=== PATIENT | female | born 1960 | race African-American/Black ===

== ENCOUNTER → 2016-09-03 | Outpatient (CLI) | payer OTHER | LOC: OD 10:45 | DX: D64.9 Anemia, unspecified (principal) | CPT/HCPCS: 36415; 82728; 83540; 83550 ==

== ENCOUNTER 2017-05-16 14:10 | Observation (INO) | payer MEDICAID, OTHER ==
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
[2017-05-16 15:08] LABS: ABSOLUTE EOSINOPHILS # (AUTO) 0.1 10^3/uL (0.0-0.6); ABSOLUTE LYMPHOCYTES (AUTO) 0.9 10^3/uL (0.5-4.7); ABSOLUTE MONOCYTES (AUTO) 0.3 10^3/uL (0.1-1.4); ABSOLUTE NEUT (AUTO) 1.6 10^3/uL (1.7-8.2); BASOPHILS % (AUTO) 0.7 % (0-2); EOSINOPHILS % (AUTO) 2.3 % (0-6); HEMOGLOBIN 12.5 g/dL (12.0-15.5); HGB HCT DIFFERENCE -0.5; LYMPHOCYTES % (AUTO) 32.7 % (13-45); MEAN CORPUSCULAR HEMOGLOBIN 28.7 pg (27.0-33.4); MEAN CORPUSCULAR HGB CONC 32.9 g/dL (32.0-36.0); MEAN CORPUSCULAR VOLUME 87 fl (80-97); MONOCYTES % (AUTO) 9.7 % (3-13); RED BLOOD COUNT 4.37 10^6/uL (3.72-5.28); SEGMENTED NEUTROPHILS % (AUTO) 54.6 % (42-78); WHITE BLOOD COUNT 2.9 10^3/uL (4.0-10.5)
[2017-05-16 15:13] LABS: PROTHROMBIN TIME 14.2 SEC (11.4-15.4)
[2017-05-16 15:14] LABS: PARTIAL THROMBOPLASTIN TIME 31.9 SEC (23.5-35.8)
[2017-05-16 15:23] LABS: ALANINE AMINOTRANSFERASE 35 U/L (9-52); ALBUMIN 4.7 g/dL (3.5-5.0); ALKALINE PHOSPHATASE 58 U/L (38-126); ANION GAP 13 (5-19); ASPARTATE AMINO TRANSFERASE 23 U/L (14-36); BILIRUBIN,DIRECT 0.3 mg/dL (0.0-0.4); BILIRUBIN,TOTAL 0.6 mg/dL (0.2-1.3); BLOOD UREA NITROGEN 16 mg/dL (7-20); CARBON DIOXIDE 27 mmol/L (22-30); CHLORIDE 104 mmol/L (98-107); CREATINE KINASE 132 U/L (30-135); CREATININE RESULT 0.71 mg/dL (0.52-1.25); GLUCOSE 93 mg/dL (75-110); POTASSIUM 4.5 mmol/L (3.6-5.0); TOTAL PROTEIN 8.4 g/dL (6.3-8.2)
--- NOTE | 2017-05-16 15:23 | RADIOLOGY REPORT (SQ) ---
EXAM DESCRIPTION: CHEST SINGLE VIEW COMPLETED DATE/TIME: 05/16/2017 3:05 pm REASON FOR STUDY: chest pain, SOB, nausea COMPARISON: 08/07/2016 EXAM PARAMETERS: NUMBER OF VIEWS: One view. TECHNIQUE: Single frontal radiographic view of the chest acquired. RADIATION DOSE: NA LIMITATIONS: None. FINDINGS: LUNGS AND PLEURA: No opacities, masses or pneumothorax. No pleural effusion. MEDIASTINUM AND HILAR STRUCTURES: No masses. Contour normal. HEART AND VASCULAR STRUCTURES: Heart normal in size. Normal vasculature. BONES: No acute findings. HARDWARE: None in the chest. OTHER: No other significant finding. IMPRESSION: NO ACUTE RADIOGRAPHIC FINDING IN THE CHEST. TECHNICAL DOCUMENTATION: JOB ID: [id number]
--- NOTE | 2017-05-16 15:23 | RADIOLOGY REPORT (SQ) ---
EXAM DESCRIPTION: CT HEAD WITHOUT COMPLETED DATE/TIME: 05/16/2017 3:10 pm REASON FOR STUDY: right sided weakness COMPARISON: 08/07/2016 TECHNIQUE: Axial images acquired through the brain without intravenous contrast. Images reviewed wi th bone, brain and subdural windows. Images stored on PACS. All CT scanners at this facility use dose modulation, iterative reconstruction, and/or weight based d osing when appropriate to reduce radiation dose to as low as reasonably achievable (ALARA). [facility]: Dose Right [facility]: CareDose [facility]: Dose Right [facility]: Teradose 4D [facility]: Smart Transpera RADIATION DOSE: Up-to-date CT equipment and radiation dose reduction techniques were employed. CTDIv ol: 64.6 mGy. DLP: 1163 mGy-cm. mGy. LIMITATIONS: None. FINDINGS: VENTRICLES: Normal size and contour. CEREBRUM: No masses. No hemorrhage. No midline shift. No evidence for acute infarction. Normal gra y/white matter differentiation. No areas of low density in the white matter. CEREBELLUM: No masses. No hemorrhage. No alteration of density. No evidence for acute infarction. EXTRAAXIAL SPACES: No fluid collections. No masses. ORBITS AND GLOBE: No intra- or extraconal masses. Normal contour of globe without masses. CALVARIUM: No fracture. PARANASAL SINUSES: Stable right maxillary sinus mucous retention cyst. SOFT TISSUES: No mass or hematoma. OTHER: No other significant finding. IMPRESSION: NO ACUTE INTRACRANIAL IMAGING FINDINGS. NO SIGNIFICANT CHANGE FROM PRIOR STUDY. EVIDENCE OF ACUTE STROKE: NO. COMMENT: Quality ID # [id number]: Final reports with documentation of one or more dose reduction techniques (e.g., Automated exposure control, adjustment of the mA and/or kV according to patient size, use of iterative reconstruction technique) TECHNICAL DOCUMENTATION: JOB ID: [id number]- All Rights Reserved
[2017-05-16 15:35] LABS: CREATINE KINASE MB 1.71 ng/mL (<4.55)
[2017-05-16 15:36] LABS: TROPONIN I < 0.012 ng/mL
[2017-05-16] MEDS ORDERED: OXYCODONE-ACETAMINOPHEN 5-325 MG TABLET PO ONE (15:50)
--- NOTE | 2017-05-16 15:54 | ER Document Report ---
ED Cardiac - General Chief Complaint: Chest Pain Stated Complaint: CHEST PAIN Time Seen by Provider: 05/16/17 14:38 Mode of Arrival: Ambulatory Information source: Patient Notes: 56 yo hypothyroid, CVA 2012, GERD, daily headache Migraine female drove herself to ER c/o constant sharp tightness in chest retrosternal and under left breast onset last night, also c/o dizziness, headache (all around head- doesn't want to discribe any further), {during hx pt keeps rolling her eyes and saying "[place]" not wanting to answer questions because "I hurt so bad", then she apologizes saying she does not fell well}, numbness in right leg and right arm also started last night. Numbness right side of face started while in ER . Pt teaful but says "I' m alright- I'm alright " Hx DDD lumbar which causes legs to go out on her blaterally, and hx of migraines which she thinks she has now. PCP: Dr. Chin Never had stress test. Hx PE on Warfarin and states she is allergic to aspirin ( hives) but has been given baby asa in ER before here. Same presentation today than when she present 08-07-16. She wants me to tell dr. chin that she now has Medicaid. TRAVEL OUTSIDE OF THE [place] IN LAST 30 DAYS: No - Related Data Allergies/Adverse Reactions: egg [Egg] Allergy (Unknown, Verified 05/16/17 14:29) hydrocodone [Hydrocodone] Allergy (Unknown, Verified 05/16/17 14:29) Influenza Virus Vaccines [Influenza Virus Vaccine] Allergy (Unknown, Verified 14:29) Iodinated Contrast- Oral and IV Dye [IV Dye, Iodine Containing] Allergy (Unknown , Verified 05/16/17 14:29) metaxalone [From Skelaxin] Allergy (Unknown, Verified 05/16/17 14:29) metoclopramide [From Reglan] Allergy (Unknown, Verified 05/16/17 21:50) fentanyl [Fentanyl] Allergy (Verified 05/16/17 14:29) itching, swelling, SOB aspirin [Aspirin] Adverse Reaction (Verified 05/16/17 14:29) Past Medical History - General Information source: Patient - Social History Smoking Status: Never Smoker Chew tobacco use (# tins/day): No Frequency of alcohol use: None Drug Abuse: None 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 schulz started iron injections 2 weeks ago - Past Medical History Cardiac Medical History: Reports: Hx DVT, Hx Hypercholesterolemia, Hx Pulmonary Embolism, Hx Heart Murmur Pulmonary Medical History: Reports: Hx Asthma, Hx Pneumonia Denies: Hx Tuberculosis Neurological Medical History: Reports: Hx Cerebrovascular Accident - 2012, left side weakness, Hx Migraine. Denies: Hx Seizures Endocrine Medical History: Reports: Hx Hypothyroidism - Takes 125 mcg of Synthroid daily Renal/ Medical History: Reports: Other - fibroids. Denies: Hx Peritoneal Dialysis GI Medical History: Reports: Hx Gastroesophageal Reflux Disease Musculoskeltal Medical History: Reports Hx Arthritis, Reports Other - DDD lumbar spine Psychiatric Medical History: Reports: Hx Depression Traumatic Medical History: Reports: Hx Fractures - left forearm Past Surgical History: Reports: Hx Section - x3. Denies: Hx Pacemaker - Immunizations Immunizations up to date: No Hx Diphtheria, Pertussis, Tetanus Vaccination: Yes - 2009 Physical Exam - Vital signs Vitals: Temp Pulse Resp BP Pulse Ox 98.8 F 72 18 105/61 95 05/16/17 14:30 05/16/17 14:30 05/16/17 14:30 05/16/17 14:30 05/16/17 14:30 Interpretation: Normal - Notes Notes: tearful - General General appearance: Appears well, Alert - HEENT Head: Normocephalic, Atraumatic Eyes: Normal Pupils: PERRL Nerve palsy: No Mouth/Lips: Normal Pharynx: Normal Neck: Supple - Respiratory Respiratory status: No respiratory distress Chest status: Nontender Breath sounds: Normal Chest palpation: Normal - Cardiovascular Rhythm: Regular Heart sounds: Normal auscultation Murmur: No - Abdominal Inspection: Normal Distension: No distension Bowel sounds: Normal Tenderness: Nontender Organomegaly: No organomegaly - Back Back: Normal, Nontender - Extremities General upper extremity: Normal inspection, Nontender, Normal color, Normal ROM , Normal temperature General lower extremity: Normal inspection, Nontender, Normal color, Normal ROM , Normal temperature, Normal weight bearing. No: Chanel's sign - Neurological Neuro grossly intact: Yes Cognition: Normal Orientation: AAOx4 [place] Coma Scale Eye Opening: Spontaneous Edd Coma Scale Verbal: Oriented Edd Coma Scale Motor: Obeys Commands [place] Coma Scale Total: 15 Speech: Normal Motor strength normal: LUE, RUE, LLE, RLE Sensory: Normal - Psychological Associated symptoms: Normal affect, Normal mood - Skin Skin Temperature: Warm Skin Moisture: Dry Skin Color: Normal Course - Re-evaluation Re-evalutation: 05/16/17 16:[address] Chin for admission for chest pain rule out and he states that she was discharged from his practice because she owes him $4000. I told him that she wanted me to tell him that she has Medicaid now and I will ask if he is listed per his request as the doctor on her Medicaid card. 05/16/17 16:41 The pt confirms that she has a medicaid worker and they have him listed as the primary care doctor and she has appt 05/16/17 16:[address] Chin back and he is willing to admit her to IMCU observation for chest pain, first set of enzymes are negative. Head CT negative. Chest xray negative. EKG NSR, no acute change 05/16/17 16:45 - Vital Signs Vital signs: Temp Pulse Resp BP Pulse Ox 97.6 F 61 18 115/68 98 05/16/17 18:58 05/16/17 18:58 05/16/17 18:58 05/16/17 18:58 05/16/17 18:58 - Laboratory Result Diagrams: 05/16/17 14:50 05/16/17 14:50 Laboratory results interpreted by me: 05/16/17 05/16/17 14:50 14:50 WBC 2.9 L RDW 15.0 H Absolute Neutrophils 1.6 L Calcium 11.0 H Total Protein 8.4 H Discharge - Discharge Clinical Impression: chest pain, aspirin allergy, right side numbness Condition: Good Disposition: ADMITTED OBSERVATION Admitting Provider: [facility] Admitted: IMCU
[2017-05-16] MEDS ORDERED: MAG HYDROX/AL HYDROX/SIMETH SUSP 30 ML UDCUP PO ONE (20:01)
[2017-05-16] MEDS ORDERED: METOCLOPRAMIDE HCL ORAL SOLN 10 MG/10 ML UDCUP PO ONE (20:01)
[2017-05-16] MEDS ORDERED: LIDOCAINE 2% VISCOUS SOLN 20 ML UDCUP PO ONE (20:01)
[2017-05-16] MEDS ORDERED: NITROGLYCERIN 0.4 MG/TAB 25 TAB/BOTTLE SL PRN (20:02)
[2017-05-16] MEDS ORDERED: OXYCODONE-ACETAMINOPHEN 5-325 MG TABLET PO PRN (20:07)
--- NOTE | 2017-05-16 20:38 | PDOC H&P ---
History of Present Illness Admission Date/PCP: 05/16/17 17:05 KALEB HERNÁNDEZ Patient complains of: Chest pain History of Present Illness: ROBBIE MACDONALD is a 56 year old female who presented to the ED with chest pain that she reported started since last night. She described pain as sharp, tightness around her left breast and radiating into her left arm. She claimed associated palpitation, nausea but no vomiting. She reported to the ED due to worsening pain. She reported associated dizziness, headache, numbness over right side of her face and right upper extremities. She claimed compliance with her medication for migraine headache and anemia for which she recently started on iron injection therapy by Dr Milner. She reported significant blood loss during her menstrual bleeding due to uterine fibroid with associated right lower quadrant abdominal pain. She is on Coumadin therapy at home for management of prior pulmonary embolism. She claimed that Dr. Milner have been managing her INR. Patient reported use of Bupap for her chronic migraine headache. her initial evaluation in the ED was unrevealing but due to constellation of her symptoms there was concern for possible cardiac source or her chest pain. She was advised hospitalization for further evaluation and management. Her morbidities include history of pulmonary embolism, DVT, Hyperlipidemia, Cardiac Murmur, Asthma, Cerebrovascular Accident with left side weakness, Chronic Migraine headache, Hypothyroidism, Uterine fibroids, Gastroesophageal Reflux Disease, Arthritis, Lumbar spine degenerative disc disease, and Depression. Past Medical History Cardiac Medical History: Reports: DVT, Hyperlipidema, Pulmonary Embolism, Heart Murmur Pulmonary Medical History: Reports: Asthma, Pneumonia Denies: Tuberculosis Neurological Medical History: Reports: Migraine Denies: Seizures Endocrine Medical History: Reports: Hyperthyroidism, Hypothyroidism - Takes 125 mcg of Synthroid daily Renal/ Medical History: Reports: Other - fibroids GI Medical History: Reports: Gastroesophageal Reflux Disease Musculoskeltal Medical History: Reports: Arthritis, Other - DDD lumbar spine Psychiatric Medical History: Reports: Depression Hematology: Reports: Anemia Past Surgical History Past Surgical History: Reports: Section - x3 Denies: Hysterectomy, Pacemaker Social History Lives with: Family - daughter Smoking Status: Never Smoker Frequency of Alcohol Use: None Hx Recreational Drug Use: No Drugs: None Hx Prescription Drug Abuse: No - Advance Directive Resuscitation Status: Full Code Family History Family History: CAD - reports mother "took heart medications" but does not know what it is., DM, Malignancy - prostate, ovarain, breast, colon Parental Family History Reviewed: Yes Children Family History Reviewed: Yes Sibling(s) Family History Reviewed.: Yes Medication/Allergy Home Medications: Pv W-O Vit A/Iron,Carbonyl/FA [Prenatabs Obn Tablet] 1 each PO DAILY 07/17/11 Butalb/Acetaminophen/Caffeine [Fioricet (50-325-40 mg) Tablet] 1 tab PO Q4HP PRN 04/24/14 Albuterol Sulfate [Proair HFA Inhalation Aerosol 8.5 gm MDI] 8.5 gm IH Q4H PRN # 1 hfa.aer.ad 04/26/14 Ferrous Sulfate [Feosol 325 mg Tablet] 325 mg PO DAILY 09/02/15 Warfarin Sodium [Coumadin 5 mg Tablet] 10 mg PO QHS #60 tablet 09/05/15 Alprazolam [Xanax 0.25 mg Tablet] 0.25 mg PO BID 04/14/16 Aspirin [Aspirin 81 mg Chewable Tablet] 81 mg PO DAILY 04/14/16 Levothyroxine Sodium [Synthroid] 112 mcg PO DAILY 04/14/16 Aspirin [Ecotrin 81 mg EC Tablet] 162 mg PO DAILY tabec 05/06/16 Diclofenac Sodium [Voltaren] 100 gm TP Q6HP PRN #1 packet 05/06/16 Ibuprofen [Motrin 800 mg Tablet] 800 mg PO Q8HP PRN #30 tablet 05/06/16 Oxycodone HCl/Acetaminophen [Percocet 5-325 mg Tablet] 1 tab PO Q6HP PRN #10 tablet 05/06/16 Doxycycline Hyclate 100 mg PO BID #14 capsule 08/07/16 Fluticasone Propionate [Flonase Nasal Orange 50 Mcg/Orange 16 gm] 2 sprays NASL Q12 #1 inhaler 08/07/16 Allergies/Adverse Reactions: egg [Egg] Allergy (Unknown, Verified 05/16/17 14:29) hydrocodone [Hydrocodone] Allergy (Unknown, Verified 05/16/17 14:29) Influenza Virus Vaccines [Influenza Virus Vaccine] Allergy (Unknown, Verified 14:29) Iodinated Contrast- Oral and IV Dye [IV Dye, Iodine Containing] Allergy (Unknown , Verified 05/16/17 14:29) metaxalone [From Skelaxin] Allergy (Unknown, Verified 05/16/17 14:29) fentanyl [Fentanyl] Allergy (Verified 05/16/17 14:29) itching, swelling, SOB aspirin [Aspirin] Adverse Reaction (Verified 05/16/17 14:29) Review of Systems Constitutional: PRESENT: headache(s) - all over her head, weakness - left sided related to claimed of CVA since 2011. ABSENT: as per HPI, anorexia, chills, fatigue, fever(s), night sweats, weight gain, weight loss, other Eyes: ABSENT: visual disturbances Ears: ABSENT: hearing changes Nose, Mouth, and Throat: PRESENT: headache(s) Cardiovascular: PRESENT: chest pain, palpitations. ABSENT: as per HPI, dyspnea on exertion, edema, orthropnea, other Respiratory: ABSENT: cough, hemoptysis Gastrointestinal: PRESENT: abdominal pain - RLQ region, nausea. ABSENT: as per HPI, bloating, coffee ground emesis, constipation, diarrhea, dysphagia, heartburn, hematemesis, hematochezia, melena, vomiting, other Genitourinary: ABSENT: dysuria, hematuria Musculoskeletal: PRESENT: back pain - related to her lumbar degenerative disc disease Integumentary: ABSENT: rash, wounds Neurological: PRESENT: focal weakness - related to her 2012 CVA event but remain ambulatory without significant motor deficit, numbness, paresthesias, tingling - right facial and right sided extremities, weakness Psychiatric: PRESENT: anxiety, depression. ABSENT: as per HPI, hallucinations, homidical ideation, suicidal ideation, other Endocrine: PRESENT: menstrual abnormalities - with excessive bleeding. ABSENT: as per HPI, cold intolerance, flushing, heat intolerance, polydipsia, polyphagia , polyuria, other Hematologic/Lymphatic: ABSENT: easy bleeding, easy bruising, lymphadenopathy Allergic/Immunologic: ABSENT: seasonal rhinorrhea Physical Exam Vital Signs: Temp Pulse Resp BP Pulse Ox 97.8 F 76 18 119/99 H 100 05/16/17 18:37 05/16/17 18:37 05/16/17 18:37 05/16/17 18:37 05/16/17 18:37 General appearance: PRESENT: no acute distress, cooperative Head exam: PRESENT: atraumatic, normocephalic Eye exam: PRESENT: conjunctiva pink, EOMI, PERRLA. ABSENT: scleral icterus Ear exam: PRESENT: normal external ear exam Mouth exam: PRESENT: moist, tongue midline Teeth exam: PRESENT: poor dentation Throat exam: ABSENT: post pharyngeal erythema, tonsillar erythema, tonsillar exudate, tonsillogmegaly, other Neck exam: PRESENT: full ROM. ABSENT: carotid bruit, JVD, lymphadenopathy, thyromegaly Respiratory exam: PRESENT: clear to auscultation lola Cardiovascular exam: PRESENT: RRR. ABSENT: diastolic murmur, rubs, systolic murmur Vascular exam: PRESENT: normal capillary refill. ABSENT: pallor GI/Abdominal exam: PRESENT: normal bowel sounds, soft. ABSENT: distended, guarding, mass, organolmegaly, rebound, tenderness Rectal exam: PRESENT: deferred Extremities exam: ABSENT: pedal edema Musculoskeletal exam: PRESENT: ambulatory, normal inspection Neurological exam: PRESENT: alert, awake, oriented to person, oriented to place , oriented to time, oriented to situation, CN II-XII grossly intact. ABSENT: motor sensory deficit Psychiatric exam: PRESENT: appropriate affect, normal mood. ABSENT: homicidal ideation, suicidal ideation Skin exam: PRESENT: dry, intact, warm. ABSENT: cyanosis, rash Results Laboratory Results: I reviewed her lab results on [employer] and form significant part of my medical decision making. Impressions: Chest X-Ray 05/16/17 14:39 IMPRESSION: NO ACUTE RADIOGRAPHIC FINDING IN THE CHEST. Head CT 05/16/17 14:47 IMPRESSION: NO ACUTE INTRACRANIAL IMAGING FINDINGS. NO SIGNIFICANT CHANGE FROM PRIOR STUDY. EVIDENCE OF ACUTE STROKE: NO. Assessment & Plan - Time Time Spent: 50 to 70 Minutes Medications reviewed and adjusted accordingly: Yes Anticipated discharge: Home Within: within 24 hours - Plan Summary Plan Summary: see admitting attending physician orders.
[2017-05-16] MEDS: NORMAL SALINE 1000 ML 1,000 ML IV PRN (20:58)
[2017-05-16] MEDS ORDERED: DIPHENHYDRAMINE HCL 25 MG CAPSULE PO ONE (22:00)
[2017-05-17] MEDS: ACETAMINOPHEN 325 MG TABLET PO PRN ×2 (02:13→11:11)
[2017-05-17] MEDS: NORMAL SALINE 1000 ML 1,000 ML IV PRN ×2 (02:15→11:16)
[2017-05-17 02:17] LABS: TROPONIN I < 0.012 ng/mL
[2017-05-17] MEDS ORDERED: LANSOPRAZOLE 30 MG TAB.RAP.DR PO SCH (06:00)
--- NOTE | 2017-05-17 06:27 | EKG REPORT ---
SEVERITY:- NORMAL ECG - SINUS RHYTHM : Confirmed by: Pepper Campos MD 17-May-2017 06:26:53
--- NOTE | 2017-05-17 06:27 | EKG REPORT ---
SEVERITY:- NORMAL ECG - SINUS RHYTHM : Confirmed by: Pepper Campos MD 17-May-2017 06:27:15
[2017-05-17 08:00] LABS: ANION GAP 8 (5-19); BLOOD UREA NITROGEN 13 mg/dL (7-20); CALCIUM 9.8 mg/dL (8.4-10.2); CARBON DIOXIDE 28 mmol/L (22-30); CHLORIDE 106 mmol/L (98-107); CHOLESTEROL 152.56 mg/dL (0-200); CREATINE KINASE 106 U/L (30-135); CREATININE RESULT 0.76 mg/dL (0.52-1.25); Direct HDL 41 mg/dL (>40); GLUCOSE 85 mg/dL (75-110); POTASSIUM 4.7 mmol/L (3.6-5.0); SODIUM 141.5 mmol/L (137-145); TRIGLYCERIDES 70 mg/dL (<150)
[2017-05-17 08:11] LABS: DIRECT LDL 86 mg/dL (<100)
[2017-05-17 08:12] LABS: CREATINE KINASE MB 1.08 ng/mL (<4.55)
[2017-05-17 08:16] LABS: TROPONIN I < 0.012 ng/mL
[2017-05-17 12:27] LABS: CREATINE KINASE MB 1.13 ng/mL (<4.55)
[2017-05-17 12:37] LABS: TROPONIN I < 0.012 ng/mL
--- NOTE | 2017-05-17 13:23 | DRAGON STRESS TEST REPORT ---
EXERCISE TREADMILL TEST. DATE OF PROCEDURE: May 17, 2017 INDICATION: Patient with unspecified chest pain. Coronary risk factors: Dyslipidemia. Resting EKG: Sinus rhythm, no baseline ST segment changes. Stress EKG: No significant changes noted with with exercise treadmill. Reason for termination: Dyspnea and fatigue. PROCEDURE REPORT: Baseline heart rate: 74 beats per minute with blood pressure of 110/57. Patient had no significant complaints at baseline. Patient was exercised on a standard Gerald protocol. Patient exercised for total of 6 minutes and 03 seconds. Exercise was stopped because of fatigue and shortness of breath. Patient denied any chest arm or neck discomfort during the exercise, at peak exercise or in recovery. If automatic blood pressure recorded and if felt not accurate manual blood pressure then were recorded at appropriate intervals. Peak heart rate: 142 bpm, 85 of predicted maximum. Peak blood pressure: 161/76 mmHg. Double product: 23 kcal Exercise EKG: Showed some baseline artifact during exercise but no significant ST segment changes noted. CONCLUSIONS: Normal EKG and hemodynamic response to exercise. Average exercise tolerance. Negative EKG changes with exercise. RECOMMENDATIONS: Aggressive risk factor modification, medical therapy. Consider cardiology consultation if clinically indicated. Occasionally single vessel disease could be missed therefore if continuing symptoms, consider further evaluation. Tree Garcia M.D., [employer] Operator machine molder, Board certified in cardiovascular diseases, Nuclear cardiology, Echocardiography Cardiac CT and cardiac MRI Ph. [phone] Ph. [phone] [facility]
[2017-05-17] MEDS ORDERED: ALBUTEROL SULFATE HFA (90 MCG/PUFF) 200 PUFF/8.5 GM MDI IH PRN ×2 (14:35→16:00)
[2017-05-17] MEDS ORDERED: (PENDING PHARMACY ID) (Diclofenac Sodium [Voltaren] 1 APPLIC) TP PRN (15:50)
[2017-05-17] MEDS ORDERED: BUTALB/ACETAMINOPHEN/CAFFEINE 1 TAB EACH PO PRN (15:50)
--- NOTE | 2017-05-17 16:21 | PDOC DISCHARGE SUMMARY ---
General - Admit/Disc Date/PCP Admission Date/Primary Care Provider: 05/16/17 20:00 KALEB HERNÁNDEZ Discharge Date: 05/17/17 - Additional Information Resuscitation Status: Full Code Discharge Activity: Activity As Tolerated Home Medications: Albuterol Sulfate [Albuterol Sulfate 2.5mg/3 mL] 1 vial IH BIDP PRN #60 vial.neb 05/17/17 Albuterol Sulfate [Proair HFA] 2 puff IH Q4HP PRN #1 hfa.aer.ad 05/17/17 Alprazolam [Xanax 0.25 mg Tablet] 0.25 mg PO BID #60 tablet 05/17/17 Buspirone HCl [Buspar 10 mg Tablet] 10 mg PO BID #60 tablet 05/17/17 Butalb/Acetaminophen/Caffeine [Fioricet (50-325-40 mg) Tablet] 1 tab PO Q4HP PRN #60 each 05/17/17 Diclofenac Sodium [Voltaren] 2 gm TP TIDP PRN 30 Days #3 gm 05/17/17 Ferrous Sulfate [Feosol 325 mg Tablet] 325 mg PO DAILY #30 tablet 05/17/17 Fluticasone Propionate [Flonase Nasal Newbury 50 Mcg/Newbury 16 gm] 2 sprays NASL Q12 #120 spray.pump 05/17/17 Lansoprazole [Prevacid 30 mg Odt Tablet] 30 mg PO Q6AM #30 tab.rap. 05/17/17 Levothyroxine Sodium [Synthroid 0.112 mg Tablet] 112 mcg PO DAILY #30 tablet 04/25 Nebulizer Accessories [A.i.r.s. Nebulizer] 1 each MC BIDP PRN 180 Days #1 kit Nitroglycerin [Nitrostat 0.4 mg (1/150 Gr) Tabs 25/Bottle] 1 tab SL Q5MP PRN #1 bottle 05/17/17 Pnv No.95/Ferrous Fum/Folic AC [ Multivitamin Tablet] 1 each PO DAILY # 30 tablet 05/17/17 Rivaroxaban [Xarelto 10 mg Tablet] 20 mg PO WSUPPER #60 tablet 05/17/17 History of Present Illness History of Present Illness: ROBBIE MACDONALD is a 56 year old female who presented to the ED with chest pain that she reported started since last night. She described pain as sharp, tightness around her left breast and radiating into her left arm. She claimed associated palpitation, nausea but no vomiting. She reported to the ED due to worsening pain. She reported associated dizziness, headache, numbness over right side of her face and right upper extremities. She claimed compliance with her medication for migraine headache and anemia for which she recently started on iron injection therapy by Dr Milner. She reported significant blood loss during her menstrual bleeding due to uterine fibroid with associated right lower quadrant abdominal pain. She is on Coumadin therapy at home for management of prior pulmonary embolism. She claimed that Dr. Milner have been managing her INR. Patient reported use of Bupap for her chronic migraine headache. her initial evaluation in the ED was unrevealing but due to constellation of her symptoms there was concern for possible cardiac source or her chest pain. She was advised hospitalization for further evaluation and management. Her morbidities include history of pulmonary embolism, DVT, Hyperlipidemia, Cardiac Murmur, Asthma, Cerebrovascular Accident with left side weakness, Chronic Migraine headache, Hypothyroidism, Uterine fibroids, Gastroesophageal Reflux Disease, Arthritis, Lumbar spine degenerative disc disease, and Depression. Hospital Course Hospital Course: Her serial cardiac enzymes were within normal limits x 4. Her exercise stress test was devoid of any acute pathologic findings. Her complete echocardiogram revealed normal LVEF without any valvular abnormality. Patient remain pain free since admission. I had extensive discussion with the patient regarding diagnostic evaluation findings and post discharge care plan. She will be discharge home today with office follow up appointment schedule for 05/26/17 at 1:00 p.m. Physical Exam Vital Signs: Temp Pulse Resp BP Pulse Ox 98.4 F 75 16 95/67 L 96 05/17/17 11:42 05/17/17 15:33 05/17/17 15:33 05/17/17 15:33 05/17/17 15:33 Intake & Output 05/16/17 05/17/17 05/18/17 06:59 06:59 06:59 Intake Total 354 Balance 354 General appearance: PRESENT: no acute distress, well-developed, well-nourished Head exam: PRESENT: atraumatic, normocephalic Eye exam: PRESENT: conjunctiva pink, EOMI, PERRLA. ABSENT: scleral icterus Mouth exam: PRESENT: moist Respiratory exam: PRESENT: clear to auscultation lola Cardiovascular exam: PRESENT: RRR. ABSENT: diastolic murmur, rubs, systolic murmur Vascular exam: PRESENT: normal capillary refill. ABSENT: pallor GI/Abdominal exam: PRESENT: normal bowel sounds, soft. ABSENT: distended, guarding, mass, organolmegaly, rebound, tenderness Extremities exam: ABSENT: pedal edema Musculoskeletal exam: PRESENT: normal inspection Neurological exam: PRESENT: alert, awake, oriented to person, oriented to place , oriented to time, oriented to situation, CN II-XII grossly intact. ABSENT: motor sensory deficit Psychiatric exam: PRESENT: appropriate affect, normal mood. ABSENT: homicidal ideation, suicidal ideation Skin exam: PRESENT: dry, intact, warm. ABSENT: cyanosis, rash Results Laboratory Results: 05/17/17 07:20 05/17/17 07:20 Sodium 141.5 Potassium 4.7 Chloride 106 Carbon Dioxide 28 Anion Gap 8 BUN 13 Creatinine 0.76 Est GFR ( Amer) > 60 Est GFR (Non-Af Amer) > 60 Glucose 85 Calcium 9.8 Triglycerides 70 Cholesterol 152.56 LDL Cholesterol Direct 86 VLDL Cholesterol 14.0 HDL Cholesterol 41 05/17/17 05/17/17 05/17/17 01:35 01:35 07:20 Creatine Kinase 109 106 CK-MB (CK-2) 1.20 Troponin I < 0.012 05/17/17 05/17/17 05/17/17 07:20 11:45 11:45 Creatine Kinase 113 CK-MB (CK-2) 1.08 1.13 Troponin I < 0.012 < 0.012 Impressions: Chest X-Ray 05/16/17 14:39 IMPRESSION: NO ACUTE RADIOGRAPHIC FINDING IN THE CHEST. Head CT 05/16/17 14:47 IMPRESSION: NO ACUTE INTRACRANIAL IMAGING FINDINGS. NO SIGNIFICANT CHANGE FROM PRIOR STUDY. EVIDENCE OF ACUTE STROKE: NO. Qualifiers PATEINT BEING DISCHARGED WITH ANY OF THE FOLLOWING DIAGNOSIS?: No Plan Discharge Plan: Discharge home today. Follow up in the office as instructed upon discharge. Time Spent: Less than 30 Minutes
[2017-05-17] MEDS ORDERED: RIVAROXABAN 10 MG TABLET PO SCH (17:00)
[2017-05-17 17:01] VITALS: BP 104/78
[2017-05-17] MEDS ORDERED: ALPRAZOLAM 0.25 MG TABLET PO SCH (18:00)
[2017-05-17] MEDS ORDERED: ALBUTEROL SULFATE 0.083% NEB 2.5 MG/3 ML AMPUL NEB SCH (18:00)
[2017-05-17] MEDS ORDERED: BUSPIRONE HCL 10 MG TABLET PO SCH (18:00)
[2017-05-17] MEDS ORDERED: FLUTICASONE NASAL SPRAY 50 MCG/SPRY 120 SPRAY/16 GM NASL SCH (22:00)
[2017-05-18] MEDS ORDERED: LEVOTHYROXINE SODIUM 0.112 MG TABLET PO SCH (10:00)
[2017-05-18] MEDS ORDERED: FERROUS SULFATE 325 MG TABLET PO SCH (10:00)
[2017-05-18] MEDS ORDERED: PRENATAL VITAMIN W-O CA NO5/FE FUMARATE/FA CAPSULE PO SCH (10:00)
--- NOTE | 2017-05-18 13:20 | XCELERA REPORT ---
[address] [address] Transthoracic Echocardiogram Report Name: ROBBIE MACDONALD Age: 56 yrs Gender: Female : 1960 Patient Status: Inpatient Patient Location: [address] [place], [place] [id number] Study Date: 05/17/2017 10:11 AM Height: 63 in Weight: 160 lb BSA: 1.8 m2 Procedure: A complete two-dimensional transthoracic echocardiogram was performed (2D, M-mode, spectral and color flow Doppler). The study was technically difficult with many images being suboptimal in quality. Reason For Study: chest pain Ordering Physician: KALEB HERNÁNDEZ Performed By: Antoinette Thomas Interpretation Summary The left ventricular ejection fraction is preserved. There is borderline concentric left ventricular hypertrophy. The left ventricle is grossly normal size. Doppler measurements suggest pseudonormalized left ventricular relaxation, which is associated with grade II/IV or mild to moderate diastolic dysfunction Not all wall segments were well visualized. The right ventricular systolic function is normal. The right atrium is normal in size The left atrial size is normal. There is a trace amount of mitral regurgitation There is no mitral valve stenosis. No aortic regurgitation is present. There is no aortic valve stenosis No tricuspid regurgitation. There is no tricuspid stenosis. The aortic root is not well visualized. The inferior vena cava appeared normal and decreased > 50% with respiration (RAP 5-10 mmHg) There is no pericardial effusion. MMode/2D Measurements & Calculations RVDd: 2.7 cm LVIDd: 4.5 cm FS: 31.2 % Ao root diam: 3.2 cm IVSd: 0.97 cm LVIDs: 3.1 cm EDV(Teich): 90.8 ml LVPWd: 0.99 cmESV(Teich): 37.0 ml Ao root area: 8.2 cm2 EF(Teich): 59.2 % LA dimension: 2.9 cm LVOT diam: 2.2 cm LVOT area: 3.7 cm2 Doppler Measurements & Calculations MV E max melita: MV P1/2t max melita: Ao V2 max: LV V1 max P.9 cm/sec 57.2 cm/sec 101.0 cm/sec 3.0 mmHg MV A max melita: MV P1/2t: 46.8 msec Ao max PG: LV V1 max: 44.6 cm/sec MVA(P1/2t): 4.7 cm2 4.1 mmHg 86.4 cm/sec MV E/A: 1.3 MV dec slope: AYALA(V,D): 3.2 cm2 358.4 cm/sec2 PA V2 max: 66.8 cm/sec PA max P.8 mmHg Left Ventricle The left ventricle is grossly normal size. There is borderline concentric left ventricular hypertrophy. The left ventricular ejection fraction is preserved. Doppler measurements suggest pseudonormalized left ventricular relaxation, which is associated with grade II/IV or mild to moderate diastolic dysfunction. Not all wall segments were well visualized. Right Ventricle The right ventricle is grossly normal size. There is normal right ventricular wall thickness. The right ventricular systolic function is normal. Atria The right atrium is normal in size. The left atrial size is normal. Mitral Valve The mitral valve is grossly normal. There is no mitral valve stenosis. There is a trace amount of mitral regurgitation. Aortic Valve The aortic valve is grossly normal. There is no aortic valve stenosis. No aortic regurgitation is present. Tricuspid Valve The tricuspid valve is not well visualized secondary to technical limitations. There is no tricuspid stenosis. No tricuspid regurgitation. Pulmonic Valve The pulmonic valve is not well visualized. Great Vessels The aortic root is not well visualized. The inferior vena cava appeared normal and decreased > 50% with respiration (RAP 5-10 mmHg). Effusions There is no pericardial effusion. : KALEB HERNÁNDEZ > Tree Garcia
== END 2017-05-17 18:36 | disposition home or self-care (01) ==
LOC: ER 14:10 → UNDOADMOB 17:05 → EEVIPCON 17:05 → EH 17:05 → 3W 18:47 → EH 20:00 → 3W 20:00
PROVIDERS: ADMIT Internal Medicine Geriatric Medicine; ATTEND Internal Medicine Geriatric Medicine
DX: R07.89 Other chest pain (principal); M51.36 Other intervertebral disc degeneration, lumbar region; E03.9 Hypothyroidism, unspecified; R42 Dizziness and giddiness; R00.2 Palpitations; R11.0 Nausea; R20.0 Anesthesia of skin; J45.909 Unspecified asthma, uncomplicated; D64.9 Anemia, unspecified; G43.909 Migraine, unspecified, not intractable, without status migrainosus; I69.354 Hemiplegia and hemiparesis following cerebral infarction affecting left non-dominant side; D25.9 Leiomyoma of uterus, unspecified; R10.31 Right lower quadrant pain; N92.0 Excessive and frequent menstruation with regular cycle; M19.90 Unspecified osteoarthritis, unspecified site; F41.9 Anxiety disorder, unspecified; F32.9 Major depressive disorder, single episode, unspecified; Z82.49 Family history of ischemic heart disease and other diseases of the circulatory system; Z86.718 Personal history of other venous thrombosis and embolism; Z86.711 Personal history of pulmonary embolism; Z82.3 Family history of stroke; Z80.3 Family history of malignant neoplasm of breast; Z80.41 Family history of malignant neoplasm of ovary; Z79.02 Long term (current) use of antithrombotics/antiplatelets; Z79.899 Other long term (current) drug therapy; Z88.6 Allergy status to analgesic agent
CPT/HCPCS: 93005 ×2; 99285; 36415 ×2; 82553 ×2; 82550 ×2; 85025; 85610; 85730; 80048; 80053; 84484 ×2; 80061; 93306; 93017; 71010; 70450; 93010 ×2; G0378 ×2; J3490 ×5; J7030 ×2

== ENCOUNTER 2018-04-12 14:06 | Emergency (ER) | payer MEDICAID ==
--- NOTE | 2018-04-12 16:04 | ER Document Report ---
ED Medical Screen (RME) - General Chief Complaint: Chest Pain Stated Complaint: KNEE SWELLING, HEADACHES Time Seen by Provider: 04/12/18 16:04 Notes: Patient is a 57-year-old female with DVT history that presents to the emergency department for chief complaint of chest pain, and multiple other complaints. ROS: GENERAL: Denies fever or chills CV: Denies chest pain PHYSICAL EXAMINATION: Vital signs reviewed. GENERAL: Well-appearing, well-nourished and in no acute distress. HEAD: Atraumatic, normocephalic. EYES: Pupils equal round extraocular movements intact, conjunctiva are normal. ENT: Nares patent NECK: Normal range of motion CV: Heart regular rate and rhythm LUNGS: No respiratory distress Musculoskeletal: Normal range of motion NEUROLOGICAL: Normal speech PSYCH: Normal mood, normal affect. MDM: Patient seen and examined for rapid initial assessment. Vital signs reviewed. A comprehensive ED assessment and evaluation of the patient, analysis of test results and completion of the medical decision making process will be conducted by additional ED providers. *Note is created using voice recognition software and may contain spelling, syntax or grammatical errors. TRAVEL OUTSIDE OF THE [place] IN LAST 30 DAYS: No - Related Data Allergies/Adverse Reactions: egg [Egg] Allergy (Unknown, Verified 04/12/18 14:11) hydrocodone [Hydrocodone] Allergy (Unknown, Verified 04/12/18 14:11) Influenza Virus Vaccines [Influenza Virus Vaccine] Allergy (Unknown, Verified 14:11) Iodinated Contrast- Oral and IV Dye [IV Dye, Iodine Containing] Allergy (Unknown , Verified 04/12/18 14:11) metaxalone [From Skelaxin] Allergy (Unknown, Verified 04/12/18 14:11) metoclopramide [From Reglan] Allergy (Unknown, Verified 04/12/18 14:11) fentanyl [Fentanyl] Allergy (Verified 04/12/18 14:11) itching, swelling, SOB aspirin [Aspirin] Adverse Reaction (Verified 04/12/18 14:11) Past Medical History - Social History Family history: Arthritis, CVA, DM, Hypertension, Other - Past Medical History Cardiac Medical History: Reports: Hx DVT, Hx Hypercholesterolemia, Hx Pulmonary Embolism, Hx Heart Murmur Pulmonary Medical History: Reports: Hx Asthma, Hx Pneumonia Denies: Hx Tuberculosis Neurological Medical History: Reports: Hx Cerebrovascular Accident - 2012, left side weakness, Hx Migraine. Denies: Hx Seizures Endocrine Medical History: Reports: Hx Hyperthyroidism, Hx Hypothyroidism - Takes 125 mcg of Synthroid daily Renal/ Medical History: Denies: Hx Peritoneal Dialysis GI Medical History: Reports: Hx Gastroesophageal Reflux Disease Musculoskeltal Medical History: Reports Hx Arthritis Psychiatric Medical History: Reports: Hx Depression Traumatic Medical History: Reports: Hx Fractures - left forearm Past Surgical History: Reports: Hx Section - x3. Denies: Hx Hysterectomy, Hx Pacemaker - Immunizations Immunizations up to date: No Hx Diphtheria, Pertussis, Tetanus Vaccination: Yes - 2009 History of Influenza Vaccine for 05/2017 - 10/2017 Season: Refused Physical Exam - Vital signs Vitals: Temp Pulse Resp BP Pulse Ox 98.3 F 63 16 130/81 H 96 04/12/18 15:20 04/12/18 15:20 04/12/18 15:20 04/12/18 15:20 04/12/18 15:20 Course - Vital Signs Vital signs: Temp Pulse Resp BP Pulse Ox 98.3 F 63 16 130/81 H 96 04/12/18 15:20 04/12/18 15:20 04/12/18 15:20 04/12/18 15:20 04/12/18 15:20 Doctor's Discharge - Discharge Referrals: KALEB HERNÁNDEZ MD [Primary Care Provider] - Follow up as needed
--- NOTE | 2018-04-12 16:43 | RADIOLOGY REPORT (SQ) ---
EXAM DESCRIPTION: CHEST SINGLE VIEW COMPLETED DATE/TIME: 04/12/2018 4:32 pm REASON FOR STUDY: CHEST PAIN COMPARISON: Chest films 08/07/2016, 05/16/2017 EXAM PARAMETERS: NUMBER OF VIEWS: One view. TECHNIQUE: Single frontal radiographic view of the chest acquired. RADIATION DOSE: NA LIMITATIONS: None. FINDINGS: LUNGS AND PLEURA: No opacities, masses or pneumothorax. No pleural effusion. MEDIASTINUM AND HILAR STRUCTURES: No masses. Contour normal. HEART AND VASCULAR STRUCTURES: Heart normal in size. Normal vasculature. BONES: No acute findings. HARDWARE: None in the chest. OTHER: No other significant finding. IMPRESSION: NO ACUTE RADIOGRAPHIC FINDING IN THE CHEST. TECHNICAL DOCUMENTATION: JOB ID: [id number] [employer]- All Rights Reserved Reading location - IP/workstation name: [email or web address]
[2018-04-12 18:33] LABS: ABSOLUTE EOSINOPHILS # (AUTO) 0.2 10^3/uL (0.0-0.6); ABSOLUTE LYMPHOCYTES (AUTO) 1.5 10^3/uL (0.5-4.7); ABSOLUTE MONOCYTES (AUTO) 0.4 10^3/uL (0.1-1.4); ABSOLUTE NEUT (AUTO) 2.2 10^3/uL (1.7-8.2); BASOPHILS % (AUTO) 1.1 % (0-2); EOSINOPHILS % (AUTO) 4.4 % (0-6); HEMATOCRIT 40.1 % (36.0-47.0); HEMOGLOBIN 13.6 g/dL (12.0-15.5); LYMPHOCYTES % (AUTO) 34.5 % (13-45); MEAN CORPUSCULAR HEMOGLOBIN 31.4 pg (27.0-33.4); MEAN CORPUSCULAR HGB CONC 33.9 g/dL (32.0-36.0); MEAN CORPUSCULAR VOLUME 93 fl (80-97); MONOCYTES % (AUTO) 8.4 % (3-13); PLATELET COUNT 381 10^3/uL (150-450); RED BLOOD COUNT 4.32 10^6/uL (3.72-5.28); RED CELL DISTRIBUTION WIDTH 13.7 % (11.5-14.0); SEGMENTED NEUTROPHILS % (AUTO) 51.6 % (42-78); TOTAL CELLS COUNTED % (AUTO) 100 %; WHITE BLOOD COUNT 4.3 10^3/uL (4.0-10.5)
[2018-04-12 19:00] LABS: ALANINE AMINOTRANSFERASE 29 U/L (9-52); ALBUMIN 4.5 g/dL (3.5-5.0); ALKALINE PHOSPHATASE 52 U/L (38-126); ANION GAP 10 (5-19); ASPARTATE AMINO TRANSFERASE 45 U/L (14-36); BILIRUBIN,DIRECT 0.2 mg/dL (0.0-0.4); BILIRUBIN,TOTAL 0.5 mg/dL (0.2-1.3); BLOOD UREA NITROGEN 12 mg/dL (7-20); CALCIUM 9.6 mg/dL (8.4-10.2); CARBON DIOXIDE 29 mmol/L (22-30); CHLORIDE 103 mmol/L (98-107); GLUCOSE 107 mg/dL (75-110); POTASSIUM 3.3 mmol/L (3.6-5.0); SODIUM 141.7 mmol/L (137-145); TOTAL PROTEIN 8.1 g/dL (6.3-8.2)
--- NOTE | 2018-04-12 19:30 | EKG REPORT ---
SEVERITY:- NORMAL ECG - SINUS RHYTHM : Confirmed by: David Garcia MD 12-Apr-2018 19:29:52
[2018-04-12] MEDS ORDERED: POTASSIUM CHLORIDE 20 MEQ/15 ML UDCUP PO ONE (20:17)
[2018-04-12] MEDS ORDERED: MORPHINE SULFATE 10 MG/ML INJ IV ONE (20:31)
[2018-04-12] MEDS ORDERED: PREDNISONE 20 MG TABLET PO ONE (20:32)
[2018-04-12] MEDS ORDERED: TRAMADOL HCL 50 MG TABLET PO ONE (20:44)
--- NOTE | 2018-04-12 21:05 | ER Document Report ---
ED General - General Chief Complaint: Chest Pain Stated Complaint: KNEE SWELLING, HEADACHES Time Seen by Provider: 04/12/18 16:04 TRAVEL OUTSIDE OF THE [place] IN LAST 30 DAYS: No - HPI Notes: 57-year-old female presents with multiple complaints. She has been having pain and swelling to both knees, worse on the left of the past several weeks. She was seen by orthopedist last week and had a cortisone injection. She states this caused the pain and swelling to worsen. She was told that she had both osteoarthritis and rheumatoid arthritis. She was also told that she had rhabdomyolysis. She was not referred to a engine inspector. She reports having pain in her right shoulder for the past year and a half from her torn rotator cuff. She has not been offered surgery. She tried physical therapy without an improvement. She also reports intermittent headaches, chest pain, and shortness of breath. She has no fevers above 99. - Related Data Allergies/Adverse Reactions: egg [Egg] Allergy (Unknown, Verified 04/12/18 14:11) hydrocodone [Hydrocodone] Allergy (Unknown, Verified 04/12/18 14:11) Influenza Virus Vaccines [Influenza Virus Vaccine] Allergy (Unknown, Verified 14:11) Iodinated Contrast- Oral and IV Dye [IV Dye, Iodine Containing] Allergy (Unknown , Verified 04/12/18 14:11) metaxalone [From Skelaxin] Allergy (Unknown, Verified 04/12/18 14:11) metoclopramide [From Reglan] Allergy (Unknown, Verified 04/12/18 14:11) fentanyl [Fentanyl] Allergy (Verified 04/12/18 14:11) itching, swelling, SOB aspirin [Aspirin] Adverse Reaction (Verified 04/12/18 14:11) Past Medical History - Social History Smoking Status: Never Smoker Family History: CAD - reports mother "took heart medications" but does not know what it is., DM, Malignancy - prostate, ovarain, breast, colon Patient has suicidal ideation: No Patient has homicidal ideation: No - Past Medical History Cardiac Medical History: Reports: Hx DVT, Hx Hypercholesterolemia, Hx Pulmonary Embolism, Hx Heart Murmur Pulmonary Medical History: Reports: Hx Asthma, Hx Pneumonia Denies: Hx Tuberculosis Neurological Medical History: Reports: Hx Cerebrovascular Accident - 2012, left side weakness, Hx Migraine. Denies: Hx Seizures Endocrine Medical History: Reports: Hx Hyperthyroidism, Hx Hypothyroidism - Takes 125 mcg of Synthroid daily Renal/ Medical History: Denies: Hx Peritoneal Dialysis GI Medical History: Reports: Hx Gastroesophageal Reflux Disease Musculoskeletal Medical History: Reports Hx Arthritis Psychiatric Medical History: Reports: Hx Depression Traumatic Medical History: Reports: Hx Fractures - left forearm Past Surgical History: Reports: Hx Section - x3. Denies: Hx Hysterectomy, Hx Pacemaker - Immunizations Immunizations up to date: No Hx Diphtheria, Pertussis, Tetanus Vaccination: Yes - 2009 Review of Systems - Review of Systems Notes: Constitutional: Negative for fever. Positive for chills and sweats HENT: Negative for sore throat. Eyes: Negative for visual changes. Cardiovascular: Positive for chest pain. Respiratory: Positive for shortness of breath. Gastrointestinal: Negative for abdominal pain, vomiting or diarrhea. Genitourinary: Negative for dysuria. Musculoskeletal: Positive for multiple arthralgias and myalgias, especially to left knee with swelling. Also reports pain to left forearm and right fingers Skin: Negative for rash. Neurological: Positive for headaches, no focal weakness or numbness. 10 point ROS negative except as marked above and in HPI. Physical Exam - Vital signs Vitals: Temp Pulse Resp BP Pulse Ox 98.3 F 63 16 130/81 H 96 04/12/18 15:20 04/12/18 15:20 04/12/18 15:20 04/12/18 15:20 04/12/18 15:20 - Notes Notes: PHYSICAL EXAMINATION: GENERAL: Well-appearing, well-nourished and in no acute distress. HEAD: Atraumatic, normocephalic. EYES: Pupils equal round and reactive to light, extraocular movements intact, conjunctiva are normal. ENT: nares patent, oropharynx clear without exudates. Moist mucous membranes. NECK: Normal range of motion, supple without lymphadenopathy LUNGS: Breath sounds clear to auscultation bilaterally and equal. No wheezes rales or rhonchi. HEART: Regular rate and rhythm, no chest wall tenderness ABDOMEN: Soft, nontender, normoactive bowel sounds. No guarding, no rebound. No masses appreciated. EXTREMITIES: Small effusion left knee with tenderness. No warmth or erythema. No edema. No warmth or erythema to bilateral hands or forearms. She does have tenderness to palpation of her left forearm without crepitus, induration, or fluctuance. NEUROLOGICAL: Cranial nerves grossly intact. Normal speech, normal gait. Normal sensory and motor exams. PSYCH: Normal mood, normal affect. SKIN: Warm, Dry, normal turgor, no rashes or lesions noted. Course - Re-evaluation Re-evalutation: 04/12/18 21:03 Patient very well-appearing. No edema. Bilateral Dopplers were ordered in triage and are negative. Appears that she has osteoarthritis with possible rheumatoid arthritis in left knee with obvious effusion. No sign of infection. No fever, warmth, redness. Advised importance of following up with rheumatology. Will give course of prednisone. Patient repeatedly requested pain medicine. She has allergy to hydrocodone. When offered morphine, she declined stating that she has to take care of children. She states that she would take Ultram or Motrin. Then ordered Ultram she states she did not want to because she has it at home. At this time will discharge with return precautions and follow-up recommendations. Verbal discharge instructions given a the bedside and opportunity for questions given. Medication warnings reviewed. Patient is in agreement with this plan and has verbalized understanding of return precautions and the need for primary care follow-up in the next 24-72 hours. Voice dictation software was used. Chart was reviewed, but errors may exist. 04/12/18 18:00 04/12/18 18:00 MCV 93 fl (80-97) 04/12/18 18:00 MCH 31.4 pg (27.0-33.4) 04/12/18 18: MCHC 33.9 g/dL (32.0-36.0) 04/12/18 18: RDW 13.7 % (11.5-14.0) 04/12/18 18:00 Seg Neutrophils % 51.6 % (42-78) 04/12/18 18:00 Lymphocytes % 34.5 % (13-45) 04/12/18 18: Monocytes % 8.4 % (3-13) 04/12/18 18:00 Eosinophils % 4.4 % (0-6) 04/12/18 18:00 Basophils % 1.1 % (0-2) 04/12/18 18: Absolute Neutrophils 2.2 10^3/uL (1.7-8.2) 04/12/18 18:00 Absolute Lymphocytes 1.5 10^3/uL (0.5-4.7) 04/12/18 18:00 Absolute Monocytes 0.4 10^3/uL (0.1-1.4) 04/12/18 18:00 Absolute Eosinophils 0.2 10^3/uL (0.0-0.6) 04/12/18 18:00 Absolute Basophils 0.0 10^3/uL (0.0-0.2) 04/12/18 18:00 Chloride 103 mmol/L (98-107) 04/12/18 18:00 Carbon Dioxide 29 mmol/L (22-30) 04/12/18 18:00 Anion Gap 10 (5-19) 04/12/18 18:00 Est GFR ( Amer) > 60 (>60) 04/12/18 18:00 Est GFR (Non-Af Amer) > 60 (>60) 04/12/18 18:00 Glucose 107 mg/dL (75-110) 04/12/18 18:00 Calcium 9.6 mg/dL (8.4-10.2) 04/12/18 18:00 Total Bilirubin 0.5 mg/dL (0.2-1.3) 04/12/18 18:00 AST 45 U/L (14-36) H 04/12/18 18:00 ALT 29 U/L (9-52) 04/12/18 18:00 Alkaline Phosphatase 52 U/L (38-126) 04/12/18 18:00 Total Protein 8.1 g/dL (6.3-8.2) 04/12/18 18:00 Albumin 4.5 g/dL (3.5-5.0) 04/12/18 18:00 04/12/18 04/12/18 18:00 20:27 Troponin I < 0.012 < 0.012 Chest X-Ray 04/12/18 16:09 IMPRESSION: NO ACUTE RADIOGRAPHIC FINDING IN THE CHEST. - Vital Signs Vital signs: Temp Pulse Resp BP Pulse Ox 98.3 F 63 16 130/81 H 99 04/12/18 15:20 04/12/18 15:20 04/12/18 15:20 04/12/18 15:20 04/12/18 19:38 - Laboratory Result Diagrams: 04/12/18 18:00 04/12/18 18:00 Laboratory results interpreted by me: 04/12/18 18:00 Potassium 3.3 L AST 45 H Discharge - Discharge Clinical Impression: Effusion, left knee Condition: Stable Disposition: HOME, SELF-CARE Additional Instructions: You must follow-up with your primary care doctor and/or orthopedics for referral to engine inspector. Take prednisone taper. Return for any worsening or concerning symptoms such as fever, redness. Knee Effusion You have a fluid collection in the knee joint, called an effusion. This fluid build up can occur from irritation of the synovial membrane lining the knee joint or from a more serious injury to the knee. Irritation of the membrane can occur from excessive, repetitive knee activitiy, like kneeling or squatting for extended periods or even just excessive walking, jogging, or skiing. Effusions also can occur with infections in the joint and with some arthritic conditions, especially gout. Fluid collections in these situations are usually yellow in color and either clear or cloudy in appearance. Significant injury to the knee can result in fluid collection which is partly or entirely blood and this condition is known as a hemarthrosis of the knee joint. If the fluid collection is not too large and/or painful, it can be managed conservatively with rest, ice packs, and anti-inflammatory and pain medications as needed. If the fluid collection is large and very painful, the knee joint can be drained (aspirated) by a relatively minor procedure of inserting a needle in the joint and removing some or all of the fluid present. If your knee was aspirated, you should rest it as much as possible for a few days, keep a pressure dressing around the knee and apply ice packs for at least 48 - 72 hours. If there are signs of developing infection such as heat and redness of the knee, fever, etc. you should return immediately for a recheck. Prescriptions: Prednisone [Deltasone 20 mg Tablet] 3 tab PO DAILY 5 Days tablet Referrals: KALEB HERNÁNDEZ MD [Primary Care Provider] - Follow up in 3-5 days
[2018-04-12 21:21] VITALS: BP 134/96
--- NOTE | 2018-04-13 12:28 | XCELERA REPORT ---
[address] [facility] [place] [address] Lower Extremity Venous Evaluation Procedure: Color flow and duplex imaging bilaterally of the veins of the lower extremities as well as the Common Femoral veins. Right Sided Venous Evaluation Normal vessel filling wall to wall, compression and augmentation as well as Colour flow down to the infrageniculate veins. Left Sided Venous Evaluation Normal vessel filling wall to wall, compression and augmentation as well as Colour flow down to the infrageniculate veins. Interpretation Summary No duplex evidence of DVT or obstruction in the bilateral lower extremities. Name: ROBBIE MACDONALD Age: 57 yrs Gender: Female : 1960 Patient Status: Emergency Patient Location: ER Study Date: 04/12/2018 07:36 PM Reason For Study: BILATERAL LOWER EXTREMITY SWELLING, HX DVT Ordering Physician: KALI RAUSCH Performed By: Carline Bryant : KALI RAUSCH > Donavon Self
== END 2018-04-12 21:21 | disposition home or self-care (01) ==
LOC: ER 14:06
DX: M25.462 Effusion, left knee (principal); M25.461 Effusion, right knee
CPT/HCPCS: 93005; 99284; 36415; 85025; 80053; 84484; 93970 ×2; 71045; 93010; J3490; J7512

== ENCOUNTER 2019-09-01 13:00 | Emergency (ER) | payer MEDICAID ==
[2019-09-01 13:10] VITALS: BP 117/78
--- NOTE | 2019-09-01 13:38 | ER Document Report ---
ED Medical Screen (RME) - General Chief Complaint: Flu Symptoms Stated Complaint: SHOULDER PAIN/FLU SYMPTOMS Time Seen by Provider: 09/01/19 13:23 Primary Care Provider: KALEB HERNÁNDEZ MD [Primary Care Provider] - Follow up as needed Mode of Arrival: Ambulatory Information source: Patient Notes: 59-year-old female patient presents the emergency department with 2-month history of cough, patient reports she now has fever and congestion. Patient is concerned she may have flu or pneumonia. She states multiple sick contacts recently. She denies any nausea, vomiting, diarrhea. Lung sounds clear and equal bilaterally. I have greeted and performed a rapid initial assessment of this patient. A comprehensive ED assessment and evaluation of the patient, analysis of test results and completion of the medical decision making process will be conducted by additional ED providers. I have specifically instructed the patient or family members with the patient to immediately return to any nursing staff should anything change in the patient's condition or with their chief complaint. TRAVEL OUTSIDE OF THE [place] IN LAST 30 DAYS: No - Related Data Allergies/Adverse Reactions: egg [Egg] Allergy (Unknown, Verified 09/01/19 13:35) hydrocodone [Hydrocodone] Allergy (Unknown, Verified 09/01/19 13:35) Influenza Virus Vaccines [Influenza Virus Vaccine] Allergy (Unknown, Verified 09/01/19 13:35) Iodinated Contrast Media [IV Dye, Iodine Containing] Allergy (Unknown, Verified 09/01/19 13:35) metaxalone [From Skelaxin] Allergy (Unknown, Verified 09/01/19 13:35) metoclopramide [From Reglan] Allergy (Unknown, Verified 09/01/19 13:35) fentanyl [Fentanyl] Allergy (Verified 09/01/19 13:35) itching, swelling, SOB aspirin [Aspirin] Adverse Reaction (Verified 09/01/19 13:35) Past Medical History - Social History Family history: Arthritis, CVA, DM, Hypertension, Other - Past Medical History Cardiac Medical History: Reports: Hx DVT, Hx Hypercholesterolemia, Hx Pulmonary Embolism, Hx Heart Murmur Pulmonary Medical History: Reports: Hx Asthma, Hx Pneumonia Denies: Hx Tuberculosis Neurological Medical History: Reports: Hx Cerebrovascular Accident - 2012, left side weakness, Hx Migraine. Denies: Hx Seizures Endocrine Medical History: Reports: Hx Hyperthyroidism, Hx Hypothyroidism - Takes 125 mcg of Synthroid daily Renal/ Medical History: Denies: Hx Peritoneal Dialysis GI Medical History: Reports: Hx Gastroesophageal Reflux Disease Musculoskeltal Medical History: Reports Hx Arthritis Psychiatric Medical History: Reports: Hx Depression Traumatic Medical History: Reports: Hx Fractures - left forearm Past Surgical History: Reports: Hx Section - x3. Denies: Hx Hysterectomy, Hx Pacemaker - Immunizations Immunizations up to date: No Hx Diphtheria, Pertussis, Tetanus Vaccination: Yes - 2009 Physical Exam - Vital signs Vitals: Temp Pulse Resp BP Pulse Ox 98.4 F 68 16 117/78 97 09/01/19 13:05 09/01/19 13:05 09/01/19 13:05 09/01/19 13:05 09/01/19 13:05 Course - Vital Signs Vital signs: Temp Pulse Resp BP Pulse Ox 98.4 F 68 16 117/78 97 09/01/19 13:05 09/01/19 13:05 09/01/19 13:05 09/01/19 13:05 09/01/19 13:05 Doctor's Discharge - Discharge Referrals: KALEB HERNÁNDEZ MD [Primary Care Provider] - Follow up as needed
--- NOTE | 2019-09-01 14:26 | RADIOLOGY REPORT (SQ) ---
EXAM DESCRIPTION: CHEST 2 VIEWS COMPLETED DATE/TIME: 09/01/2019 2:15 pm REASON FOR STUDY: cough/fever COMPARISON: AP view of the chest from 04/12/2018. EXAM PARAMETERS: NUMBER OF VIEWS: two views TECHNIQUE: PA and lateral views of the chest were obtained. RADIATION DOSE: NA LIMITATIONS: none FINDINGS: LUNGS AND PLEURA: No consolidation, pleural effusion or pneumothorax. MEDIASTINUM AND HILAR STRUCTURES: No mediastinal or hilar contour abnormality. HEART AND VASCULAR STRUCTURES: The cardiac silhouette and pulmonary vasculature are within normal carrera its. BONES: No acute findings. HARDWARE: None in the chest. OTHER: No other finding. IMPRESSION: No acute cardiopulmonary process. TECHNICAL DOCUMENTATION: JOB ID: [id number] [employer]- All Rights Reserved Reading location - IP/workstation name: [email or web address]
[2019-09-01 14:29] LABS: A TYPE INFLUENZA AG NEGATIVE (NEGATIVE); B INFLUENZA AG NEGATIVE (NEGATIVE)
--- NOTE | 2019-09-01 15:31 | ER Document Report ---
HPI - HPI Patient complains to provider of: Cough, sore throat, chronic right shoulder pain Time Seen by Provider: 09/01/19 13:23 Pain Level: 5 Notes: 59-year-old female to the emergency department with complaints of 3 weeks of persistent cough, sore throat, nasal congestion that has in the past 2 days gotten a little bit worse. She states that she has recently spiked a fever up to 101. She denies any shortness of breath or chest pain. She states that her grandchild has been sick with strep throat so she is concerned that she may have strep throat or pneumonia. She also reports that she has right shoulder pain. This is been ongoing for over 3 years. She states that she has a rotator cuff injury and she had seen orthopedic about it but has not been seen recently. She denies any new injuries or falls. - CONSTITUTIONAL Constitutional: DENIES: Fever, Chills - REPRODUCTIVE Reproductive: DENIES: : Past Medical History - General Information source: Patient - Social History Smoking Status: Never Smoker Chew tobacco use (# tins/day): No Frequency of alcohol use: None Drug Abuse: None Family History: CAD - reports mother "took heart medications" but does not know what it is., DM, Malignancy - prostate, ovarain, breast, colon Patient has suicidal ideation: No Patient has homicidal ideation: No - Past Medical History Cardiac Medical History: Reports: Hx DVT, Hx Hypercholesterolemia, Hx Pulmonary Embolism, Hx Heart Murmur Pulmonary Medical History: Reports: Hx Asthma, Hx Pneumonia Denies: Hx Tuberculosis Neurological Medical History: Reports: Hx Cerebrovascular Accident - 2012, left side weakness, Hx Migraine. Denies: Hx Seizures Endocrine Medical History: Reports: Hx Hyperthyroidism, Hx Hypothyroidism - Takes 125 mcg of Synthroid daily Renal/ Medical History: Denies: Hx Peritoneal Dialysis GI Medical History: Reports: Hx Gastroesophageal Reflux Disease Musculoskeletal Medical History: Reports Hx Arthritis Psychiatric Medical History: Reports: Hx Depression Traumatic Medical History: Reports: Hx Fractures - left forearm Past Surgical History: Reports: Hx Section - x3. Denies: Hx Hysterectomy, Hx Pacemaker - Immunizations Immunizations up to date: No Hx Diphtheria, Pertussis, Tetanus Vaccination: Yes - 2009 Vertical Provider Document - CONSTITUTIONAL Agree With Documented VS: Yes Exam Limitations: No Limitations General Appearance: WD/WN, No Apparent Distress - INFECTION CONTROL TRAVEL OUTSIDE OF THE [place] IN LAST 30 DAYS: No - HEENT HEENT: Atraumatic, PERRLA Notes: Mild posterior oropharyngeal erythema with no exudates. There is no evidence for peritonsillar abscess. Uvula is midline. There is no drooling or voice change. Patient does not have any Matias's angina. Airway is patent. - NECK Neck: Normal Inspection, Other - Mild bilateral anterior lymphadenopathy - RESPIRATORY Respiratory: Breath Sounds Normal, No Respiratory Distress, Chest Non-Tender. negative: Rales, Rhonchi, Wheezing - CARDIOVASCULAR Cardiovascular: Regular Rate, Regular Rhythm, No Murmur - GI/ABDOMEN Gastrointestinal: Abdomen Soft, Abdomen Non-Tender - BACK Back: Normal Inspection - MUSCULOSKELETAL/EXTREMETIES Notes: Mild tenderness to palpation over the right shoulder joint with noted muscle spasm to the right trapezius. Patient has increased pain with movement of the right shoulder. She cannot forward flex the shoulder greater than 45 degrees. She states it has been this way for the past 3 years. Nontender to palpation to the right elbow right wrist and right hand. Bilateral handgrips are 5 out of 5. Radial pulses are intact and equal. Cap refill is less than 2 seconds. - NEURO Level of Consciousness: Awake Motor/Sensory: No Motor Deficit, No Sensory Deficit - DERM Integumentary: Warm, Dry, No Rash Course - Re-evaluation Re-evalutation: 09/01/19 Laboratory 09/01/19 09/01/19 13:57 13:57 Influenza A (Rapid) NEGATIVE Influenza B (Rapid) NEGATIVE Group A Strep Rapid NEGATIVE Chest X-Ray 09/01/19 13:37 IMPRESSION: No acute cardiopulmonary process. Impression: Upper respiratory infection, chronic right shoulder pain. Will send home with Medrol, albuterol, Tessalon, Motrin, Robaxin. Chest x-ray with no acute pneumonia. Influenza and strep swabs were negative. While patient follow-up with her primary care physician in 1 week. She agrees with the plan. - Vital Signs Vital signs: Temp Pulse Resp BP Pulse Ox 98.4 F 68 16 117/78 97 09/01/19 13:05 09/01/19 13:05 09/01/19 13:05 09/01/19 13:05 09/01/19 13:05 - Diagnostic Test Radiology reviewed: Image reviewed, Reports reviewed Discharge - Discharge Clinical Impression: Chronic right shoulder pain URI (upper respiratory infection) Qualifiers: URI type: unspecified URI Qualified Code(s): J06.9 - Acute upper respiratory infection, unspecified Trapezius strain Qualifiers: Encounter type: initial encounter Laterality: right Qualified Code(s): S46.811A - Strain of other muscles, fascia and tendons at shoulder and upper arm level, right arm, initial encounter Condition: Stable Disposition: HOME, SELF-CARE Instructions: Upper Respiratory Illness ([facility]) Additional Instructions: TAKE MEDICINES PRESCRIBED. FOLLOW UP WITH PRIMARY CARE AND WITH ORTHOPEDIST WITHOUT FAIL. RETURN IF WORSE. PUSH FLUIDS. Prescriptions: Benzonatate [Tessalon Perles 100 mg Capsule] 200 mg PO Q8HP PRN #40 capsule PRN Reason: Albuterol Sulfate [Albuterol Sulfate Hfa] 2 puff IH Q4H #1 hfa.aer.ad Methylprednisolone [Medrol Dosepack (4 mg/Tab) 21 Tab/Dosepak] 4 mg PO ASDIR PRN #21 tab.ds.pk PRN Reason: Ibuprofen [Motrin 800 mg Tablet] 800 mg PO Q8H PRN #30 tab PRN Reason: Methocarbamol [Robaxin 500 mg Tablet] 500 mg PO QID #20 tablet Forms: Return to School Referrals: KALEB HERNÁNDEZ MD [Primary Care Provider] - Follow up in 3-5 days JULIA SHEETS JR, DO [ACTIVE PROVISIONAL STAFF] - Follow up in 1 week
== END 2019-09-01 16:36 | disposition home or self-care (01) ==
LOC: ER 13:00
DX: J06.9 Acute upper respiratory infection, unspecified (principal); M25.511 Pain in right shoulder; G89.29 Other chronic pain; R05 Cough; J02.9 Acute pharyngitis, unspecified; R50.9 Fever, unspecified; J45.909 Unspecified asthma, uncomplicated
CPT/HCPCS: 71046; 87070; 87804; 87880; 99283